=== PATIENT | male | born 1970 | race Caucasian/White ===

== ENCOUNTER 2018-02-05 16:07 | Emergency (ER) | payer BC, OTHER ==
[2018-02-05] MEDS ORDERED: LORAZEPAM 1 MG TABLET PO ONE (17:18)
--- NOTE | 2018-02-05 18:36 | ER Document Report ---
HPI - HPI Patient complains to provider of: Anxiety Onset: Just prior to arrival Onset/Duration: Gradual Pain Level: Denies Context: Patient is a well-nourished well-developed 47-year-old male who comes emergency room complaining of having increasing anxiety. Patient states that his father was just admitted to the hospital and he does not believe he will make it out tonight. Patient states he has had some of these depressive movements in the past but has been of the duodenum. States that tonight he just not able to deal with and he was gotten teary-eyed and crying his that she is never seen him like this before. Patient is asking for help. He states he went to 1 of the walk-in clinics and they were told nothing they could do for him and be a month before they could get him into any kind of a psychiatric facility. Patient denies any history or thoughts of suicide or homicidal ideations. Patient states he is just finding it too hard to deal with right now he does not want to does not want to hurt anyone. His voices her sentiments into that respect as well. She says that she is never male really see him this breakdown and cry. Patient knows he is you have to do with this for the next few days and possibly weeks but he is asking for and wanting help. The states that this is a big step for him to come to the place and ask for help. Again the attempted to do this outpatient and they were not able to achieve any help. Exacerbated by: Other Similar symptoms previously: Yes Recently seen / treated by doctor: No - ROS ROS below otherwise negative: Yes Systems Reviewed and Negative: Yes All other systems reviewed and negative - CONSTITUTIONAL Constitutional: DENIES: Fever, Chills - EENT EENT: DENIES: Sore Throat, Ear Pain, Nasal Drainage-Clear, Nasal Drainage- Purulent, Congestion, Eye problems - NEURO Neurology: DENIES: Headache, Weakness, Vision blurred, Dizzinesss / Vertigo - CARDIOVASCULAR Cardiovascular: DENIES: Chest pain - RESPIRATORY Respiratory: REPORTS: Trouble Breathing - GASTROINTESTINAL Gastrointestinal: DENIES: Abdominal Pain, Nausea, Patient vomiting, Diarrhea, Constipation, Black / Bloody Stools - URINARY Urinary: DENIES: Dysuria, Urgency, Frequency - REPRODUCTIVE Reproductive: DENIES: :, Postmenopausal, Abnormal bleeding / discharge - MUSCULOSKELETAL Musculoskeletal: DENIES: Extremity pain, Back Pain, Neck Pain, Swelling - DERM Skin Color: Normal Past Medical History - General Information source: Patient, Relative - Social History Smoking Status: Never Smoker Cigarette use (# per day): No Chew tobacco use (# tins/day): No Smoking Education Provided: No Frequency of alcohol use: None Drug Abuse: None Lives with: Family Family History: Reviewed & Not Pertinent Patient has suicidal ideation: No Patient has homicidal ideation: No Renal/ Medical History: Denies: Hx Peritoneal Dialysis Psychiatric Medical History: Denies: Hx Depression - Anxiety Past Surgical History: Reports: Hx Orthopedic Surgery - Immunizations Hx Diphtheria, Pertussis, Tetanus Vaccination: No Vertical Provider Document - CONSTITUTIONAL Agree With Documented VS: Yes Exam Limitations: No Limitations General Appearance: WD/WN, No Apparent Distress - INFECTION CONTROL TRAVEL OUTSIDE OF THE [place] IN LAST 30 DAYS: No - HEENT HEENT: Atraumatic, Normocephalic - NECK Neck: Normal Inspection - RESPIRATORY Respiratory: Breath Sounds Normal, No Respiratory Distress. negative: Chest Non -Tender, Rales, Rhonchi, Wheezing - CARDIOVASCULAR Cardiovascular: Tachycardia - GI/ABDOMEN Gastrointestinal: Abdomen Soft, Normal Bowel Sounds. negative: Abdomen Tender - NEURO Level of Consciousness: Awake, Alert, Appropriate Motor/Sensory: No Motor Deficit - History, No Sensory Deficit - She - DERM Integumentary: Warm, Dry Course - Re-evaluation Re-evalutation: 02/05/18 18:37 Physical exam shows patient to be a normal gentleman with basically high anxiety level. I also talked to our geriatric social work professor Wyatt who was actually on her way out the door for very important engagement she had me a paper for psych that she uses for her patients informed me that he can call any of those numbers and get help. She also informed me that I can write him a week 's supply of BuSpar 5 mg twice a day he can go to a walk-in clinic and they will would usually write him for a month supply until he can get into see a a therapist. I am also going to treat him short-term for acute anxiety by giving him 1 mg of Xanax and he can take 1/2-1 tablet up to twice a day. I informed Wyatt that this is what intended to do and she told me it sounded as a good plan. I do not think and do not believe patient is suicidal homicidal I believe he is had a dark spot in his life that he needs help from outside source and we are here to offer that to him at the present time.. 02/05/18 18:39 - Vital Signs Vital signs: Temp Pulse Resp BP Pulse Ox 98.3 F 120 H 18 141/94 H 96 02/05/18 17:47 02/05/18 17:47 02/05/18 17:47 02/05/18 17:47 02/05/18 17:47 Discharge - Discharge Clinical Impression: Anxiety Condition: Stable Disposition: HOME, SELF-CARE Instructions: Anxiety ([facility]) Additional Instructions: As we discussed I can treat you for a full term effect of antidepressants. I realize which you have is an anxiety situation but that is also controlled with anti-depression medications. We are going to place you on BuSpar 5 mg twice a day. We will give you one weeks worth. You may go to 1 of the walk-in urgent cares like the one across from the hospital and usually they will write you for a month supply for the city we are in serious about treating you. I am also writing you for Xanax 1 mg you can take 1/2-1 tablet twice a day as needed for anxiety. This is a very sedating medication so as we discussed be very careful with know how its going to react with you before you try to go out. Highly suggest you do not drive or work at [employer] while taking this medication. Should you become suicidal or homicidal at any time please return to ER make a call to the numbers that I have given you for help. Prescriptions: Alprazolam 1 mg PO ASDIR PRN #10 tablet PRN Reason:
[2018-02-05 18:55] VITALS: BP 134/89
== END 2018-02-05 18:56 | disposition home or self-care (01) ==
LOC: ER 16:07
DX: F41.9 Anxiety disorder, unspecified (principal)
CPT/HCPCS: 99283

== ENCOUNTER 2018-02-10 16:35 | Emergency (ER) | payer OTHER ==
[2018-02-10 16:49] VITALS: BP 141/94
--- NOTE | 2018-02-10 17:15 | ER Document Report ---
ED Psych Disorder / Suicide - General Chief Complaint: Anxiety Stated Complaint: MEDICATION REFILL Time Seen by Provider: 02/10/18 17:09 Mode of Arrival: Ambulatory Information source: Patient - pt with anxiety due to father's illness -- denies homicidal or suicidal ideation. Requests refill of meds given here earlier in the week. Has PCP appt but not for 2 weeks TRAVEL OUTSIDE OF THE [place] IN LAST 30 DAYS: No - Related Data Allergies/Adverse Reactions: No Known Allergies Allergy (Unverified 05/30/12 14:21) Past Medical History - Social History Smoking Status: Former Smoker Chew tobacco use (# tins/day): No Frequency of alcohol use: None Drug Abuse: None Family History: Reviewed & Not Pertinent Patient has suicidal ideation: No Patient has homicidal ideation: No Renal/ Medical History: Denies: Hx Peritoneal Dialysis Psychiatric Medical History: Denies: Hx Depression - Anxiety Past Surgical History: Reports: Hx Orthopedic Surgery - Immunizations Hx Diphtheria, Pertussis, Tetanus Vaccination: No Review of Systems - Review of Systems Constitutional: No symptoms reported EENT: No symptoms reported Cardiovascular: No symptoms reported Respiratory: No symptoms reported Gastrointestinal: No symptoms reported Neurological/Psychological: See HPI, Anxiety -: Yes All other systems reviewed and negative Physical Exam - Vital signs Vitals: Temp Pulse Resp BP Pulse Ox 98.4 F 111 H 18 141/94 H 96 02/10/18 16:44 02/10/18 16:44 02/10/18 16:44 02/10/18 16:44 02/10/18 16:44 - General General appearance: Appears well In distress: None - HEENT Pharynx: Normal Neck: Normal - Respiratory Respiratory status: No respiratory distress Breath sounds: Normal - Cardiovascular Rhythm: Regular Heart sounds: Normal auscultation - Psychological Associated symptoms: Normal affect, Normal mood Course - Vital Signs Vital signs: Temp Pulse Resp BP Pulse Ox 98.4 F 111 H 18 141/94 H 96 02/10/18 16:44 02/10/18 16:44 02/10/18 16:44 02/10/18 16:44 02/10/18 16:44 Discharge - Discharge Clinical Impression: Acute anxiety Condition: Stable Instructions: Anxiety ([facility]) Additional Instructions: rest, take meds as prescribed, return if worse Prescriptions: Alprazolam [Xanax] 1 mg PO DAILY #30 tablet Buspirone HCl [Buspar 5 mg Tablet] 1 tab PO DAILY #30 tab
== END 2018-02-10 17:25 | disposition home or self-care (01) ==
LOC: ER 16:35
DX: F41.9 Anxiety disorder, unspecified (principal); Z76.0 Encounter for issue of repeat prescription; Z87.891 Personal history of nicotine dependence
CPT/HCPCS: 99282

== ENCOUNTER → 2018-08-04 | Outpatient (CLI) | payer OTHER ==
--- NOTE | 2018-08-05 10:20 | RADIOLOGY REPORT (SQ) ---
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 RADIONUCLIDE AND DOSE: 10.6 mCi F18 FDG The route of agent administration: Intravenous FASTING BLOOD SUGAR: 198 mg/dl CONTRAST TYPE AND DOSE: No CT contrast given. TECHNIQUE: Blood glucose level was verified. Above dose of FDG was injected intravenously. 2-D seg mented attenuation correction images were obtained from the base of the skull to the midthighs. Nonc ontrast CT images were obtained for attenuation correction and fusion with emission images. CT image s were performed without oral or intravenous contrast and are not sensitive for parenchymal lesions. A series of overlapping emission PET images were obtained. Images reviewed and manipulated at [facility] work station by the radiologist. Images stored on PACS. LIMITATIONS: None. FINDINGS: HEAD AND NECK: Hypermetabolic mass right suprahyoid posterior triangle measuring about 3.5 cm maximum diameter and 8.6 SUV. CHEST: No areas of abnormal metabolic activity in the chest. ABDOMEN AND PELVIS: No areas of abnormal metabolic activity in the abdomen or pelvis. Expected physi ologic activity is present in the genitourinary system and bowel. PROXIMAL LOWER EXTREMITIES: No areas of abnormal metabolic activity in the soft tissues of the lower extremities. BONES: No abnormal metabolic activity in the visualized skeleton. ADDITIONAL CT FINDINGS: Non hypermetabolic low-density right thyroid nodule. Left-sided central line tip in the SVC. OTHER: Blood pool 1.5 SUV. Liver background 2.2 SUV. IMPRESSION: Hypermetabolic right neck mass which has been biopsied with pathology B cell lymphoma. No evidence of metastatic disease. TECHNICAL DOCUMENTATION: JOB ID: [id number] [employer]- All Rights Reserved Reading location - IP/workstation name: [email or web address]
== END ==
LOC: RAD 17:09
PROVIDERS: ATTEND Internal Medicine Medical Oncology
DX: C83.31 Diffuse large B-cell lymphoma, lymph nodes of head, face, and neck (principal); R22.0 Localized swelling, mass and lump, head
CPT/HCPCS: 78815; A9552

== ENCOUNTER → 2018-08-13 | Outpatient (CLI) | payer OTHER ==
--- NOTE | 2018-08-13 12:45 | RADIOLOGY REPORT (SQ) ---
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 RADIONUCLIDE AND DOSE: 25 mCi technetium 99m labeled red blood cells The route of agent administration: Intravenous TECHNIQUE: Following administration of the radionuclide, gated images of the heart are obtained in t hree projections. Left ventricular functional analysis performed. LIMITATIONS: None. FINDINGS: LEFT VENTRICULAR FUNCTION: EJECTION FRACTION: 69%. END-DIASTOLIC VOLUME: 92 mL. END-SYSTOLIC VOLUME: 21 mL. WALL MOTION: No focal wall motion abnormalities. OTHER: No other significant finding. IMPRESSION: NORMAL CARDIAC MUGA STUDY. NORMAL LEFT VENTRICULAR FUNCTION WITH VALUES ABOVE. TECHNICAL DOCUMENTATION: JOB ID: [id number] [employer]- All Rights Reserved Reading location - IP/workstation name: [email or web address]
== END ==
LOC: RAD 10:06
PROVIDERS: ATTEND Internal Medicine Medical Oncology
DX: I42.7 Cardiomyopathy due to drug and external agent (principal)
CPT/HCPCS: 78472; A9560; Q9969